=== PATIENT | female | born 1955 | race Hispanic/Latino ===

== ENCOUNTER 2021-12-12 12:55 | Emergency (ER) | payer MEDICARE, OTHER ==
[~2021-12-12] VITALS: Ht 157.5 cm; Wt 82.3 kg
[2021-12-12] MEDS ORDERED: PROVENTIL HFA6.7 GM INH (14:40)
[2021-12-12 14:49] VITALS: BP 138/78
== END 2021-12-12 14:51 | disposition home or self-care (01) ==
LOC: FSED 13:25
DX: R06.02 Shortness of breath (principal); R07.9 Chest pain, unspecified; I10 Essential (primary) hypertension; E11.9 Type 2 diabetes mellitus without complications; E78.5 Hyperlipidemia, unspecified
CPT/HCPCS: 71045; 93005; 99284

== ENCOUNTER 2024-04-19 12:59 | Emergency (ER) | payer MEDICARE, OTHER ==
[~2024-04-19] VITALS: Ht 157.5 cm; Wt 76.0 kg
[~2024-04-19 12:59] MED LIST: PROVENTIL HFA6.7 GM INH
[2024-04-19] MEDS ORDERED: SYNJARDY 12.5-1 EACH (13:49)
[2024-04-19] MEDS ORDERED: OZEMPIC1 MG/0.71 (13:49)
[2024-04-19] MEDS ORDERED: CRESTOR40 MG (13:49)
[2024-04-19] MEDS ORDERED: LOPID600 MG PO (13:49)
[2024-04-19 14:12] VITALS: PULSE 96; RESP 18; TEMP 98.4; O2SAT 94
== END 2024-04-19 14:12 | disposition home or self-care (01) ==
LOC: FSED 13:21
DX: R05.9 Cough, unspecified (principal); U07.1 COVID-19; H92.02 Otalgia, left ear; R42 Dizziness and giddiness; I10 Essential (primary) hypertension; E11.9 Type 2 diabetes mellitus without complications; E78.5 Hyperlipidemia, unspecified
CPT/HCPCS: 0223U; 83518; 87400; 99283